=== PATIENT | male | born 1965 | race Hispanic/Latino ===

== ENCOUNTER 2018-10-19 09:32 | Emergency (ER) | payer OTHER ==
[~2018-10-19 09:32] MED LIST: LANS1COM10 PO; PANT40TA PO
[2018-10-19 10:12] LABS: BASOPHILS % (AUTO) 0.3 % (0.0-5.0); EOSINOPHILS % (AUTO) 2.4 % (0.0-8.0); HEMATOCRIT 45.8 % (42-54); LYMPHOCYTES % (AUTO) 28.7 % (21.0-51.0); MEAN CORPUSCULAR HEMOGLOBIN 28.1 pg (27.0-33.0); MEAN CORPUSCULAR HGB CONC 33.4 g/dL (32.0-36.0); MEAN CORPUSCULAR VOLUME 84.3 fL (79-99); MONOCYTES % (AUTO) 9.2 % (3.0-13.0); NEUTROPHILS % (AUTO) 59.4 % (40.0-77.0); NUCLEATED RED BLOOD CELLS 0.1 % (0.0-0.19); PLATELET COUNT (AUTO) 208 K/uL (130-400); RED BLOOD CELL COUNT(AUTO) 5.44 MIL/uL (4.50-6.20); RED CELL DISTRIBUTION WIDTH 13.6 % (11.0-15.5); WHITE BLOOD COUNT (AUTO) 7.4 K/uL (4.8-10.8)
[2018-10-19 10:15] LABS: APPEARANCE,URINE Clear (CLEAR); BILIRUBIN,URINE Negative (NEGATIVE); COLOR,URINE Yellow (YELLOW); GLUCOSE, URINE (UA) >=1000 mg/dL (NEGATIVE); KETONES,URINE Negative (NEGATIVE); LEUKOCYTE ESTERASE ,URINE Negative (NEGATIVE); NITRATE,URINE Negative (NEGATIVE); OCCULT BLOOD,URINE Negative (NEGATIVE); PH,URINE 5.5 (5.0-8.0); PROTEIN,URINE Trace mg/dL (NEGATIVE)
[2018-10-19 10:19] LABS: CREATININE 0.8 mg/dL (0.5-1.5); POTASSIUM 3.9 mmol/L (3.5-5.1)
[2018-10-19 10:19] LABS: BACTERIA,URINE Rare /HPF (None Seen); RBC,URINE 0-1 /HPF (0-1); SQUAMOUS EPITHELIAL CELL,UR Rare /HPF (0-2); WBC,URINE 0-1 /HPF (0-1)
[2018-10-19 10:27] LABS: ALBUMIN 3.7 g/dL (3.5-5.0); BILIRUBIN,TOTAL 0.6 mg/dL (0.2-1.0); CRP QUANTITATIVE 5.3 mg/L (0.00-9.0); TOTAL PROTEIN, SERUM 7.2 g/dL (6.0-8.3)
[2018-10-19] MEDS ORDERED: KETOROLAC TROMETHAMINE 30MG/ML ONE (11:21)
== END 2018-10-19 11:41 | disposition home or self-care (01) ==
LOC: EDH 09:32
DX: M79.18 Myalgia, other site (principal); M79.652 Pain in left thigh; M79.651 Pain in right thigh; E78.5 Hyperlipidemia, unspecified; I10 Essential (primary) hypertension; E11.9 Type 2 diabetes mellitus without complications; Z90.49 Acquired absence of other specified parts of digestive tract; Z72.0 Tobacco use
CPT/HCPCS: 36415; 80053; 81001; 82085; 82550; 85025; 85651; 86140; 87804 ×2; 93005; 96374; 99285; J1885

== ENCOUNTER 2021-04-28 20:27 | Emergency (ER) | payer MEDICAID, OTHER ==
[~2021-04-28] VITALS: Ht 167.6 cm; Wt 77.1 kg
[2021-04-28 20:53] LABS: APPEARANCE,URINE Clear (CLEAR); BILIRUBIN,URINE Negative (NEGATIVE); COLOR,URINE Yellow (YELLOW); GLUCOSE, URINE (UA) >=1000 mg/dL (NEGATIVE); KETONES,URINE Negative (NEGATIVE); LEUKOCYTE ESTERASE ,URINE Negative (NEGATIVE); NITRATE,URINE Negative (NEGATIVE); OCCULT BLOOD,URINE Negative (NEGATIVE); PROTEIN,URINE POS 2+ mg/dL (NEGATIVE)
[2021-04-28] MEDS ORDERED: 0.9%NACL 1000ML 1,000 ML IV SCH (21:00)
[2021-04-28] MEDS ORDERED: CYCLOBENZAPRINE HCL 10 MG TABLET PO SCH (21:00)
[2021-04-28] MEDS ORDERED: PROMETHAZINE HCL 25 MG/ML 1ML AMPULE IM SCH (21:00)
[2021-04-28 21:02] LABS: BASOPHILS % (AUTO) 0.5 % (0.0-5.0); EOSINOPHILS % (AUTO) 2.8 % (0.0-8.0); HEMATOCRIT 46.8 % (42-54); MEAN CORPUSCULAR HEMOGLOBIN 28.3 pg (27.0-33.0); MEAN CORPUSCULAR HGB CONC 32.9 g/dL (32.0-36.0); MEAN CORPUSCULAR VOLUME 85.9 fL (79-99); MONOCYTES % (AUTO) 15.3 % (3.0-13.0); PLATELET COUNT (AUTO) 195 K/uL (130-400); RED BLOOD CELL COUNT(AUTO) 5.45 MIL/uL (4.50-6.20); RED CELL DISTRIBUTION WIDTH 13.1 % (11.0-15.5); WHITE BLOOD COUNT (AUTO) 7.5 K/uL (4.8-10.8)
[2021-04-28 21:04] LABS: BACTERIA,URINE Rare /HPF (None Seen); MUCUS,URINE Few LPF (None Seen); SQUAMOUS EPITHELIAL CELL,UR Few /HPF (0-2); WBC,URINE 0-1 /HPF (0-1)
[2021-04-28 21:11] LABS: CREATININE 0.9 mg/dL (0.5-1.5); POTASSIUM 3.7 mmol/L (3.5-5.1)
[2021-04-28 21:16] LABS: ALBUMIN 3.7 g/dL (3.5-5.0); BILIRUBIN,TOTAL 0.3 mg/dL (0.2-1.0); TOTAL PROTEIN, SERUM 7.4 g/dL (6.0-8.3)
[2021-04-28] MEDS ORDERED: KETOROLAC 30MG VIAL (30MG/ML) IV SCH (21:40)
[2021-04-28] MEDS ORDERED: CEFTRIAXONE 1G VIAL IVP SCH (22:00)
[2021-04-28] MEDS ORDERED: NIFEDIPINE 10 MG CAP PO SCH (22:30)
[2021-04-28] MEDS ORDERED: ACETAMINOPHEN 500 MG TABLET PO ONE (22:30)
[2021-04-28] MEDS ORDERED: AMOX-429 PO (23:04)
[2021-04-28] MEDS ORDERED: ACET-2247 PO (23:04)
[2021-04-28 23:40] VITALS: BP 149/79
== END 2021-04-28 23:32 | disposition home or self-care (01) ==
LOC: EDH 20:27
DX: J18.9 Pneumonia, unspecified organism (principal); G44.209 Tension-type headache, unspecified, not intractable; E11.9 Type 2 diabetes mellitus without complications; I10 Essential (primary) hypertension; F17.210 Nicotine dependence, cigarettes, uncomplicated; Z79.84 Long term (current) use of oral hypoglycemic drugs; Z79.899 Other long term (current) drug therapy
CPT/HCPCS: 36415; 70450; 71045; 80053; 81001; 82948; 85025; 96361; 96372; 96374; 96375; 99285; J0696; J1885; J2550

== ENCOUNTER 2021-05-18 14:23 | Inpatient (IN) | payer MEDICAID, OTHER ==
[~2021-05-18] VITALS: Ht 167.6 cm; Wt 72.7 kg
[~2021-05-18 14:23] MED LIST changes: +ACET-2247 PO; +AMOX-429 PO
[2021-05-18 15:16] LABS: BASOPHILS % (AUTO) 0.4 % (0.0-5.0); EOSINOPHILS % (AUTO) 4.2 % (0.0-8.0); HEMATOCRIT 48.7 % (42-54); LYMPHOCYTES % (AUTO) 22.8 % (21.0-51.0); MEAN CORPUSCULAR HEMOGLOBIN 27.8 pg (27.0-33.0); MEAN CORPUSCULAR HGB CONC 33.3 g/dL (32.0-36.0); MEAN CORPUSCULAR VOLUME 83.7 fL (79-99); MONOCYTES % (AUTO) 9.1 % (3.0-13.0); NEUTROPHILS % (AUTO) 63.2 % (40.0-77.0); PLATELET COUNT (AUTO) 239 K/uL (130-400); RED BLOOD CELL COUNT(AUTO) 5.82 MIL/uL (4.50-6.20); RED CELL DISTRIBUTION WIDTH 12.7 % (11.0-15.5); WHITE BLOOD COUNT (AUTO) 9.9 K/uL (4.8-10.8)
[2021-05-18 15:29] LABS: CREATININE 0.8 mg/dL (0.5-1.5); INR 0.93 (0.85-1.15); POTASSIUM 4.3 mmol/L (3.5-5.1); PROTHROMBIN TIME 10.2 SEC (9.6-11.6)
[2021-05-18 15:30] LABS: PARTIAL THROMBOPLASTIN TIME 25.2 SEC (26.3-35.5)
[2021-05-18 15:36] LABS: ALBUMIN 3.9 g/dL (3.5-5.0); BILIRUBIN,TOTAL 0.3 mg/dL (0.2-1.0); TOTAL PROTEIN, SERUM 7.8 g/dL (6.0-8.3)
[2021-05-18 16:54] LABS: APPEARANCE,URINE Clear (CLEAR); BILIRUBIN,URINE Negative (NEGATIVE); COLOR,URINE Yellow (YELLOW); GLUCOSE, URINE (UA) >=1000 mg/dL (NEGATIVE); KETONES,URINE Negative (NEGATIVE); LEUKOCYTE ESTERASE ,URINE Negative (NEGATIVE); NITRATE,URINE Negative (NEGATIVE); OCCULT BLOOD,URINE Negative (NEGATIVE); PH,URINE 6.5 (5.0-8.0); PROTEIN,URINE POS 2+ mg/dL (NEGATIVE)
[2021-05-18 17:00] LABS: RBC,URINE 0-1 /HPF (0-1); WBC,URINE 0-1 /HPF (0-1)
[2021-05-18 17:01] LABS: BACTERIA,URINE Rare /HPF (None Seen); SQUAMOUS EPITHELIAL CELL,UR Rare /HPF (0-2)
[2021-05-18 17:03] LABS: AMPHET/METH SCREEN,URINE NEGATIVE (NEGATIVE); BARBITURATE SCREEN, URINE NEGATIVE (NEGATIVE); BENZODIAZEPINES SCREEN,URINE NEGATIVE (NEGATIVE); CANNABINOID SCREEN,URINE NEGATIVE (NEGATIVE); COCAINE SCREEN,URINE NEGATIVE (NEGATIVE); OPIATE SCREEN,URINE NEGATIVE (NEGATIVE); PHENCYCLIDINE SCREEN,URINE NEGATIVE (NEGATIVE)
[2021-05-18] MEDS ORDERED: 0.9%NACL 1000ML 1,000 ML IV ONE (18:00)
[2021-05-18] MEDS ORDERED: INSULIN HUMULIN R 100 UNIT/ML 3ML IV ONE (18:00)
[2021-05-18] MEDS ORDERED: GLUCAGON 1MG KIT 1 MG ML IM PRN (19:30)
[2021-05-18] MEDS ORDERED: DEXTROSE 50%-WATER 50 ML DISP.SYRIN IV PRN (19:30)
[2021-05-18 20:07] LABS: HEMOGLOBIN A1C 11.5 % (4.0-6.0)
[2021-05-18 20:36] LABS: CRP QUANTITATIVE < 2.00 mg/L (0.00-9.0); THYROID STIMULATING HORMONE 1.31 uIU/mL (0.36-3.74)
[2021-05-18] MEDS ORDERED: MORPHINE 2 MG SYG IVP ONE (21:00)
[2021-05-18] MEDS ORDERED: NITROGLYCERIN 0.4 MG SL TAB SL PRN (21:00)
[2021-05-18] MEDS ORDERED: ONDANSETRON 4MG INJ IV PRN (21:00)
[2021-05-18] MEDS ORDERED: INSULIN HUMULIN R 100 UNIT/ML 3ML SQ SCH (21:00)
[2021-05-18] MEDS: FAMOTIDINE 20MG VIAL IV SCH (21:16)
[2021-05-18] MEDS: 0.9%NACL 1000ML 1,000 ML IV SCH (21:16)
[2021-05-18] MEDS: KETOROLAC 15MG/ML VIAL (15MG/ML) IV PRN (21:55)
[2021-05-18] MEDS ORDERED: LABETALOL 20MG SYG IV ONE (23:00)
[2021-05-18] MEDS ORDERED: LORAZEPAM 2 MG/ML 1 ML VIAL IVP ONE (23:00)
[2021-05-19] VITALS (7 sets, daily range): BP systolic 150–191; BP diastolic 81–90
[2021-05-19] MEDS ORDERED: CHLORDIAZEPOXIDE HCL 25 MG CAP PO PRN ×2
[2021-05-19] MEDS ORDERED: THIAMINE HCL 100 MG, FOLIC ACID 1 MG, M.V.I. IV [ADULT] 10 ML in 0.9%NACL 1000ML 1,000 ML IV SCH ×4
[2021-05-19] MEDS ORDERED: LORAZEPAM 2 MG/ML 1 ML VIAL IVP PRN ×2
[2021-05-19] MEDS ORDERED: PHARMACY COMMUNICATION MISC PRN
[2021-05-19] MEDS ORDERED: HYDRALAZINE 20MG/ML VIAL ONE (04:23)
[2021-05-19] MEDS: HYDRALAZINE 20MG/ML VIAL IV PRN ×2 (04:25→21:40)
[2021-05-19 06:32] LABS: BASOPHILS % (AUTO) 0.4 % (0.0-5.0); EOSINOPHILS % (AUTO) 4.6 % (0.0-8.0); HEMATOCRIT 42.8 % (42-54); LYMPHOCYTES % (AUTO) 30.7 % (21.0-51.0); MEAN CORPUSCULAR HEMOGLOBIN 28.1 pg (27.0-33.0); MEAN CORPUSCULAR HGB CONC 33.2 g/dL (32.0-36.0); MEAN CORPUSCULAR VOLUME 84.8 fL (79-99); MONOCYTES % (AUTO) 9.7 % (3.0-13.0); NEUTROPHILS % (AUTO) 54.3 % (40.0-77.0); PLATELET COUNT (AUTO) 227 K/uL (130-400); RED BLOOD CELL COUNT(AUTO) 5.05 MIL/uL (4.50-6.20); RED CELL DISTRIBUTION WIDTH 12.9 % (11.0-15.5); WHITE BLOOD COUNT (AUTO) 9.8 K/uL (4.8-10.8)
[2021-05-19] MEDS: INSULIN HUMULIN R 100 UNIT/ML 3ML SQ SCH ×4 (06:38→21:27)
[2021-05-19] MEDS: 0.9%NACL 1000ML 1,000 ML IV SCH ×2 (06:41→17:00)
[2021-05-19 06:58] LABS: ALBUMIN 3.3 g/dL (3.5-5.0); BILIRUBIN,TOTAL 0.5 mg/dL (0.2-1.0); CREATININE 0.7 mg/dL (0.5-1.5); MAGNESIUM 1.9 mg/dL (1.80-2.40); POTASSIUM 3.6 mmol/L (3.5-5.1); TOTAL PROTEIN, SERUM 6.5 g/dL (6.0-8.3)
[2021-05-19] MEDS: FAMOTIDINE 20MG VIAL IV SCH ×2 (09:52→21:27)
[2021-05-19] MEDS: THIAMINE HCL 100 MG, FOLIC ACID 1 MG, M.V.I. IV [ADULT] 10 ML in 0.9%NACL 1000ML 1,000 ML IV SCH (10:11)
[2021-05-19] MEDS ORDERED: GADOTERATE MEGLUMINE 10 MMOL/20 ML VIAL IV ONE (11:19)
[2021-05-19] MEDS ORDERED: LORAZEPAM 0.5 MG TABLET PO SCH (11:30)
[2021-05-19] MEDS: KETOROLAC 15MG/ML VIAL (15MG/ML) IV PRN (21:28)
[2021-05-19] MEDS: GABAPENTIN 300 MG CAPSULE PO SCH (21:28)
[2021-05-20] VITALS (7 sets, daily range): BP systolic 160–195; BP diastolic 72–99
[2021-05-20] MEDS: 0.9%NACL 1000ML 1,000 ML IV SCH ×3 (01:19→23:00)
[2021-05-20] MEDS: HYDRALAZINE 20MG/ML VIAL IV PRN ×2 (04:38→16:28)
[2021-05-20] MEDS: ACETAMINOPHEN 325 MG TAB PO PRN ×2 (04:43→21:31)
[2021-05-20 04:55] LABS: HEMATOCRIT 44.8 % (42-54); MEAN CORPUSCULAR HGB CONC 32.6 g/dL (32.0-36.0); MEAN CORPUSCULAR VOLUME 85.8 fL (79-99); RED BLOOD CELL COUNT(AUTO) 5.22 MIL/uL (4.50-6.20); RED CELL DISTRIBUTION WIDTH 13.1 % (11.0-15.5); WHITE BLOOD COUNT (AUTO) 9.7 K/uL (4.8-10.8)
[2021-05-20 05:09] LABS: CREATININE 0.8 mg/dL (0.5-1.5); POTASSIUM 3.6 mmol/L (3.5-5.1)
[2021-05-20] MEDS: INSULIN HUMULIN R 100 UNIT/ML 3ML SQ SCH ×4 (05:56→21:26)
[2021-05-20] MEDS: THIAMINE HCL 100 MG, FOLIC ACID 1 MG, M.V.I. IV [ADULT] 10 ML in 0.9%NACL 1000ML 1,000 ML IV SCH (06:00)
[2021-05-20] MEDS: MULTIVITAMIN TABLET PO SCH (10:03)
[2021-05-20] MEDS: ASPIRIN 325MG TAB PO SCH (10:03)
[2021-05-20] MEDS: FOLIC ACID 1 MG TABLET PO SCH (10:03)
[2021-05-20] MEDS: FAMOTIDINE 20MG VIAL IV SCH ×2 (10:03→21:30)
[2021-05-20] MEDS: GABAPENTIN 300 MG CAPSULE PO SCH ×4 (10:04→21:32)
[2021-05-20] MEDS: THIAMINE HCL 100 MG TABLET PO SCH (10:04)
[2021-05-20] MEDS: KETOROLAC 15MG/ML VIAL (15MG/ML) IV PRN (10:32)
[2021-05-20] MEDS ORDERED: GENTAMICIN SULFATE 0.3% 3.5 GM OPHTH OINT OU SCH (16:00)
[2021-05-20] MEDS ORDERED: ATORVASTATIN 10 MG TABLET PO SCH (21:00)
[2021-05-21] VITALS: BP 178/89
[2021-05-21 04:00] VITALS: BP 85/96
[2021-05-21] MEDS: ACETAMINOPHEN 325 MG TAB PO PRN ×2 (04:07→10:22)
[2021-05-21] MEDS: THIAMINE HCL 100 MG, FOLIC ACID 1 MG, M.V.I. IV [ADULT] 10 ML in 0.9%NACL 1000ML 1,000 ML IV SCH (06:00)
[2021-05-21] MEDS: INSULIN HUMULIN R 100 UNIT/ML 3ML SQ SCH ×2 (06:14→12:17)
[2021-05-21 08:00] VITALS: BP 179/90
[2021-05-21] MEDS: 0.9%NACL 1000ML 1,000 ML IV SCH (08:12)
[2021-05-21] MEDS: FAMOTIDINE 20MG VIAL IV SCH (10:11)
[2021-05-21] MEDS: MULTIVITAMIN TABLET PO SCH (10:12)
[2021-05-21] MEDS: ASPIRIN 325MG TAB PO SCH (10:12)
[2021-05-21] MEDS: THIAMINE HCL 100 MG TABLET PO SCH (10:12)
[2021-05-21] MEDS: FOLIC ACID 1 MG TABLET PO SCH (10:12)
[2021-05-21] MEDS: GABAPENTIN 300 MG CAPSULE PO SCH ×2 (10:14→13:35)
[2021-05-21 12:00] VITALS: BP 203/91
[2021-05-21] MEDS: HYDRALAZINE 20MG/ML VIAL IV PRN (12:18)
[2021-05-21] MEDS ORDERED: AMLO5TAB4 PO (15:34)
[2021-05-21] MEDS ORDERED: GABA300C PO (15:34)
[2021-05-21] MEDS ORDERED: FOLI1 PO (15:34)
[2021-05-21] MEDS ORDERED: ATOR10 PO (15:34)
[2021-05-21 16:18] VITALS: BP 162/78
[2021-05-22] MEDS ORDERED: AMLODIPINE 5 MG TAB PO SCH (09:00)
== END 2021-05-21 17:54 | disposition home or self-care (01) | DRG 66 ==
LOC: EDH 14:23 → EDHIP 14:24 → 3CH 05-19 03:37
PROVIDERS: ADMIT Internal Medicine; ATTEND Internal Medicine
DX: I63.532 Cerebral infarction due to unspecified occlusion or stenosis of left posterior cerebral artery (principal); G44.209 Tension-type headache, unspecified, not intractable; H02.402 Unspecified ptosis of left eyelid; E11.65 Type 2 diabetes mellitus with hyperglycemia; Z20.822 Contact with and (suspected) exposure to COVID-19; E78.00 Pure hypercholesterolemia, unspecified; H53.47 Heteronymous bilateral field defects; R29.701 NIHSS score 1; F17.210 Nicotine dependence, cigarettes, uncomplicated; I11.9 Hypertensive heart disease without heart failure; H10.9 Unspecified conjunctivitis; Z79.899 Other long term (current) drug therapy; Z91.19 Patient's noncompliance with other medical treatment and regimen; Z82.0 Family history of epilepsy and other diseases of the nervous system; Z82.5 Family history of asthma and other chronic lower respiratory diseases; Z82.49 Family history of ischemic heart disease and other diseases of the circulatory system; Z83.3 Family history of diabetes mellitus; Z82.3 Family history of stroke
CPT/HCPCS: 36415; 70450; 70543; 70544; 70547; 70553; 71045; 71250; 80048; 80053; 80061; 80305; 81001; 82550; 82607; 82948; 83036; 83735; 84443; 84484; 85025; 85027; 85610; 85651; 85730; 86140; 87635; 92522; 92610; 93005; 93306; 93356; 97039; G0378; J0360; J1815; J1885; J2060; J2405; J3411; J3490; J7030

== ENCOUNTER 2022-04-13 12:01 | Emergency (ER) | payer MEDICAID, OTHER ==
[~2022-04-13] VITALS: Ht 165.1 cm; Wt 72.8 kg
[~2022-04-13 12:01] MED LIST changes: -ACET-2247 PO; +AMLO5TAB4 PO; -AMOX-429 PO; +ATOR10 PO; +FOLI1 PO; +GABA300C PO; -LANS1COM10 PO; -PANT40TA PO
[2022-04-13 12:48] LABS: BASOPHILS % (AUTO) 1.3 % (0.0-5.0); EOSINOPHILS % (AUTO) 3.2 % (0.0-8.0); HEMATOCRIT 48.3 % (42-54); LYMPHOCYTES % (AUTO) 31.5 % (21.0-51.0); MEAN CORPUSCULAR HEMOGLOBIN 28.6 pg (27.0-33.0); MEAN CORPUSCULAR HGB CONC 33.5 g/dL (32.0-36.0); MEAN CORPUSCULAR VOLUME 85.3 fL (79-99); MONOCYTES % (AUTO) 17.6 % (3.0-13.0); NEUTROPHILS % (AUTO) 46.1 % (40.0-77.0); PLATELET COUNT (AUTO) 191 K/uL (130-400); RED BLOOD CELL COUNT(AUTO) 5.66 MIL/uL (4.50-6.20); RED CELL DISTRIBUTION WIDTH 12.5 % (11.0-15.5); WHITE BLOOD COUNT (AUTO) 6.3 K/uL (4.8-10.8)
[2022-04-13 12:49] LABS: APPEARANCE,URINE CLEAR (CLEAR); BILIRUBIN,URINE NEGATIVE (NEGATIVE); COLOR,URINE COLORLESS (YELLOW); GLUCOSE, URINE (UA) >=1000 mg/dL (NEGATIVE); KETONES,URINE 5 mg/dL (NEGATIVE); LEUKOCYTE ESTERASE ,URINE NEGATIVE Leu/uL (NEGATIVE); NITRATE,URINE NEGATIVE (NEGATIVE); OCCULT BLOOD,URINE NEGATIVE (NEGATIVE); PH,URINE 5.5 (5.0-8.0); PROTEIN,URINE 30 mg/dL (NEGATIVE); UROBILINOGEN,URINE 0.2 mg/dL (0.2-1.0)
[2022-04-13 12:56] LABS: WBC,URINE 0-1 /HPF (0-1)
[2022-04-13 13:06] LABS: ALBUMIN 3.6 g/dL (3.5-5.0); POTASSIUM 4.7 mmol/L (3.5-5.1); TOTAL PROTEIN, SERUM 7.8 g/dL (6.0-8.3)
[2022-04-13] MEDS ORDERED: ACETAMINOPHEN 500 MG TABLET PO ONE (13:30)
[2022-04-13] MEDS ORDERED: 0.9%NACL 1000ML 1,000 ML IV ONE (13:30)
[2022-04-13 13:37] LABS: AMPHET/METH SCREEN,URINE NEGATIVE (NEGATIVE); BARBITURATE SCREEN, URINE NEGATIVE (NEGATIVE); BENZODIAZEPINES SCREEN,URINE NEGATIVE (NEGATIVE); CANNABINOID SCREEN,URINE NEGATIVE (NEGATIVE); COCAINE SCREEN,URINE NEGATIVE (NEGATIVE); OPIATE SCREEN,URINE NEGATIVE (NEGATIVE); PHENCYCLIDINE SCREEN,URINE NEGATIVE (NEGATIVE)
[2022-04-13] MEDS ORDERED: INSULIN HUMULIN R 100 UNIT/ML 3ML IV ONE (14:00)
[2022-04-13 15:01] VITALS: BP 153/84
[2022-04-13] MEDS ORDERED: ACET-66 PO (15:02)
== END 2022-04-13 15:11 | disposition home or self-care (01) ==
LOC: EDH 12:01
DX: U07.1 COVID-19 (principal); E11.65 Type 2 diabetes mellitus with hyperglycemia; E86.0 Dehydration; I10 Essential (primary) hypertension; E78.00 Pure hypercholesterolemia, unspecified; F17.200 Nicotine dependence, unspecified, uncomplicated
CPT/HCPCS: 99285; 96374; 71045; 87635; 96361; 84484; 80053; 80305; 85025; 87880; 87804 ×2; 82948; 82010; 36415; 93005; 81001; J1815; C9803; J7030